=== PATIENT | male | born 1980 | race American Indian/Alaskan Native ===

== ENCOUNTER 2016-08-12 15:26 | Emergency (ER) | payer SELFPAY ==
[2016-08-12 15:41] VITALS: BP 158/108
--- NOTE | 2016-08-12 15:55 | Emergency Department Report ---
Chief Complaint: Chest Pain Stated Complaint: DIFF BREATHING/CHEST PAIN Time Seen by Provider: 08/12/16 15:52 - HPI History of Present Illness: 35 y/o male complain of chest pain and shortness of breath x 2 days .pt state that he current of albuterol neb medication . - ROS Review of Systems: per HPI - Exam Vital Signs: Vital Signs 08/12/16 15:36 Temperature 99.4 F Pulse Rate 98 H Respiratory 24 Rate Blood Pressure 158/108 O2 Sat by Pulse 97 Oximetry Physical Exam: GENERAL: The patient is well-developed and well-nourished.pt is obese Patient is in NAD. HENT: Normocephalic. Atraumatic. Patient has moist mucous membranes. Throat: No erythema, swelling or exudates. EYES: Extraocular motions are intact, PERRL NECK: Supple. No meningitic signs are noted. There is no adenopathy noted. CHEST/LUNGS: Clear to auscultation bilaterally. wheezing noted . There is no respiratory distress noted. HEART/CARDIOVASCULAR: Regular rate and rhythm. Normal S1 S2. No murmurs, rubs , clicks, or gallops. ABDOMEN: Abdomen is soft, nontender.. Bowel sounds normoactive. There is no abdominal distention. Negative rebound tenderness. Negative Rovsing. Negative [place] testing. Negative obturator and psoas signs. Negative CVA tenderness B/ L. : Deferred. SKIN: There is no rash. There is no edema. There is no diaphoresis. NEURO: The patient is A&Ox3. The patient has no focal neurologic deficits. MUSCULOSKELETAL: There is no tenderness or deformity. There is no limitation range of motion. PSYCH: Pt has appropriate mood and affect. MSE screening note: Focused history and physical exam performed. Due to findings the following was ordered: ED Disposition for MSE Condition: Stable
[2016-08-12 16:13] LABS: Basophils % (Auto) 0.5 % (0.0-1.8); Hematocrit 43.2 % (35.5-45.6); Mean Corpuscular HGB Conc 32 % (32-34); Mean Corpuscular Hemoglobin 27 pg (28-32); Mean Corpuscular Volume 83 fl (84-94); Platelet Count 307 K/mm3 (140-440); Red Blood Count 5.21 M/mm3 (3.65-5.03); Red Cell Distribution Width 15.9 % (13.2-15.2); White Blood Count 8.6 K/mm3 (4.5-11.0)
[2016-08-12 16:38] LABS: Creatine Kinase MB 4.2 ng/mL (0.0-4.0)
[2016-08-12 16:39] LABS: Blood Urea Nitrogen 9 mg/dL (9-20); Calcium 8.1 mg/dL (8.4-10.2); Carbon Dioxide 27 mmol/L (22-30); Chloride 101.1 mmol/L (98-107); Creatine Kinase 264 units/L (55-170); Glucose 93 mg/dL (75-100); Potassium 4.8 mmol/L (3.6-5.0); Sodium 142 mmol/L (137-145)
[2016-08-12] MEDS ORDERED: DUONEB 0.5 MG-3 MG/3 ML SOLN IH ONE (16:39)
[2016-08-12 16:40] LABS: Anion Gap 19 mmol/L
[2016-08-12] MEDS ORDERED: DUONEB 0.5 MG-3 MG/3 ML SOLN IH SCH (20:00)
--- NOTE | 2016-08-13 09:27 | XRay Report ---
CHEST TWO VIEWS: 08/12/16 15:26:00 CLINICAL: Chest pain. COMPARISON: None FINDINGS: Normal heart and pulmonary vasculature. The lungs are normally expanded and clear.The bones and soft tissues are unremarkable. IMPRESSION: Normal chest.
--- NOTE | 2016-08-14 05:14 | ED Elopement Review ---
ED Pt Elopement review - Results review Lab results: Laboratory Tests 08/12/16 08/12/16 16:03 16:03 WBC 8.6 RBC 5.21 H Hgb 14.0 Hct 43.2 MCV 83 L MCH 27 L MCHC 32 RDW 15.9 H Plt Count 307 Lymph % (Auto) 21.7 [place] % (Auto) 8.5 H Eos % (Auto) 7.0 H Baso % (Auto) 0.5 Lymph # 1.9 [place] # 0.7 Eos # 0.6 H Baso # 0.0 Seg Neutrophils % 62.3 Seg Neutrophils # 5.3 Sodium 142 Potassium 4.8 Chloride 101.1 Carbon Dioxide 27 Anion Gap 19 BUN 9 Creatinine 0.6 L Estimated GFR > 60 BUN/Creatinine Ratio 15.00 Glucose 93 Calcium 8.1 L Total Creatine Kinase 264 H CK-MB (CK-2) 4.2 H CK-MB (CK-2) Rel Index 1.5 Troponin T < 0.010 - Call Back decision Pt Call Back Decision: No action required
== END 2016-08-13 05:00 | disposition left against medical advice (07) ==
LOC: ED 15:26
DX: R07.9 Chest pain, unspecified (principal); R06.02 Shortness of breath; Z53.21 Procedure and treatment not carried out due to patient leaving prior to being seen by health care provider
CPT/HCPCS: 36415; 71020; 80048; 82550; 82553; 84484; 85025; 93005; 93010; 94640

== ENCOUNTER 2019-10-13 11:40 | Emergency (ER) | payer OTHER ==
--- NOTE | 2019-10-13 11:58 | Event Note ---
ED Screening Note ED Screening Note: states he feels like he is "having an allergic reaction" states he feels like he has throat itching, lip swelling and tongue swelling does not appear to have obvious angioedema states the right side of his face is tingling states he has a right sided headache states this started yesterday states he took benadryl PMHx asthma, HTN, allergies he is not sure what he takes for his blood pressure states it has been a few days since he took his medicine This initial assessment/diagnostic orders/clinical plan/treatment(s) is/are subject to change based on patients health status, clinical progression and re- assessment by fellow clinical providers in the ED. Further treatment and workup at subsequent clinical providers discretion. Patient/guardian urged not to elope from the ED as their condition may be serious if not clinically assessed and managed. Initial orders include: labs, UA, CT head
[2019-10-13 12:52] LABS: Basophils # (Auto) 0.1 K/mm3 (0.0-0.1); Basophils % (Auto) 0.9 % (0.0-1.8); Eosinophils # (Auto) 0.4 K/mm3 (0.0-0.4); Eosinophils % (Auto) 4.8 % (0.0-4.3); Hemoglobin 12.9 gm/dl (11.8-15.2); Lymphocytes # (Auto) 1.9 K/mm3 (1.2-5.4); Mean Corpuscular HGB Conc 32 % (32-34); Mean Corpuscular Volume 82 fl (84-94); Monocytes # (Auto) 0.7 K/mm3 (0.0-0.8); Monocytes % (Auto) 7.8 % (0.0-7.3); Platelet Count 345 K/mm3 (140-440); Red Cell Distribution Width 16.5 % (13.2-15.2)
[2019-10-13 12:57] LABS: Alanine Aminotransferase 16 units/L (7-56); Albumin 3.6 g/dL (3.9-5); BUN/Creatinine Ratio 10; Blood Urea Nitrogen 7 mg/dL (9-20); Calcium 8.4 mg/dL (8.4-10.2); Hemolysis Index 6
--- NOTE | 2019-10-13 13:21 | Cat Scan Report ---
CT HEAD WITHOUT CONTRAST INDICATION / CLINICAL INFORMATION: headache, tingling, elevated BP. TECHNIQUE: All CT scans at this location are performed using CT dose reduction for ALARA by means of automated e xposure control. COMPARISON: None available. FINDINGS: HEMORRHAGE: No evidence of intracranial hemorrhage or extra-axial fluid collection. EXTRA-AXIAL SPACES: Cortical sulci, sylvian fissures and basilar cisterns have an unremarkable appear ance. VENTRICULAR SYSTEM: The ventricular system is of normal size and configuration. CEREBRAL PARENCHYMA: No areas of abnormal brain parenchymal attenuation are identified. There is no i ndication of recent infarction. MIDLINE SHIFT OR HERNIATION: There is no mass effect. CEREBELLUM / BRAINSTEM: Brainstem and cerebellum have an unremarkable appearance. INTRACRANIAL VESSELS:No abnormalities are identified on this noncontrast head CT. ORBITS: visualized portions of the orbits have an unremarkable appearance. SOFT TISSUES of HEAD: No significant abnormality. CALVARIUM: Evaluation of bone windows reveals no abnormalities. PARANASAL SINUSES / MASTOID AIR CELLS: Paranasal sinuses are free from inflammatory mucosal disease. Mastoid air cells are normally pneumatized. ADDITIONAL FINDINGS: None. IMPRESSION: 1. Normal head CT. Signer Name: Clint Elias MD Signed: 10/13/2019 1:16 PM Workstation Name: [id number]
[2019-10-13] MEDS ORDERED: FAMOTIDINE 20 MG/2 ML INJ IV ONE (13:31)
[2019-10-13] MEDS ORDERED: methylPREDNISolone Sod Succinate 125 MG/2 ML INJ IV ONE (13:31)
[2019-10-13] MEDS ORDERED: diphenhydrAMINE 50 MG/ML VIAL IV ONE (13:31)
[2019-10-13] MEDS ORDERED: ALBUTEROL 2.5 MG/3 ML NEBU IH ONE (13:34)
--- NOTE | 2019-10-13 13:38 | Emergency Department Report ---
ED Allergic Reaction HPI - General Chief complaint: Headache Stated complaint: ALLERGIC REACTION Time Seen by Provider: 10/13/19 11:57 Source: patient Mode of arrival: Ambulatory Limitations: No Limitations - History of Present Illness Initial Comments: Patient is 39 years old male hypertension and asthma. Patient presented to the ER complaining of difficulty swallowing and difficulty breathing associated with itching in his throat and tingling sensation to the right face since yesterday. Patient stated that he is taking hydrochlorothiazide for his blood pressure. Patient stated that symptoms started after he drink soda yesterday. There is no obvious angioedema noticed. MD Complaint: allergic reaction -: Last night Exposure: unknown Symptoms: difficulty swallowing, difficulty breathing Severity: moderate Treatment Prior to Arrival: benadryl - Related Data Allergies Allergy/AdvReac Type Severity Reaction Status Date / Time No Known Allergies Allergy Unverified 08/12/16 15:41 ED Review of Systems ROS: Stated complaint: ALLERGIC REACTION Other details as noted in HPI Comment: All other systems reviewed and negative Constitutional: denies: chills, fever ENT: throat pain Cardiovascular: denies: chest pain, palpitations Gastrointestinal: denies: abdominal pain, nausea, vomiting Musculoskeletal: denies: back pain ED Past Medical Hx - Past Medical History Previous Medical History?: Yes Hx Hypertension: Yes Hx Asthma: Yes - Surgical History Past Surgical History?: No - Social History Smoking Status: Never Smoker Substance Use Type: Marijuana ED Physical Exam - General Limitations: No Limitations General appearance: alert, in no apparent distress, anxious - Head Head exam: Present: atraumatic, normocephalic, normal inspection - Eye Eye exam: Present: normal appearance - ENT ENT exam: Present: normal exam, normal orophraynx, mucous membranes moist - Neck Neck exam: Present: normal inspection, full ROM. Absent: tenderness, meningismus, lymphadenopathy, thyromegaly - Respiratory Respiratory exam: Present: normal lung sounds bilaterally - Cardiovascular Cardiovascular Exam: Present: regular rate, normal rhythm, normal heart sounds - GI/Abdominal GI/Abdominal exam: Present: soft, normal bowel sounds. Absent: distended, tenderness, guarding, rebound, rigid, organomegaly, mass, bruit, pulsatile mass, hernia - Extremities Exam Extremities exam: Present: normal inspection, full ROM, normal capillary refill. Absent: tenderness, pedal edema, calf tenderness - Back Exam Back exam: Present: normal inspection, full ROM. Absent: CVA tenderness (R), CVA tenderness (L) - Neurological Exam Neurological exam: Present: alert, oriented X3, CN II-XII intact, normal gait, reflexes normal - Psychiatric Psychiatric exam: Present: normal mood, anxious - Skin Skin exam: Present: warm, intact, normal color ED Course Vital Signs 10/13/19 10/13/19 10/13/19 12:03 14:00 14:52 Temperature 98.3 F Pulse Rate 99 H 85 Pulse Rate [ 99 H Anterior Bilateral Throughout] Respiratory 20 19 Rate Respiratory 18 Rate [Anterior Bilateral Throughout] Blood Pressure 168/110 Blood Pressure 166/104 [Left] O2 Sat by Pulse 95 94 Oximetry ED Medical Decision Making - Lab Data Result diagrams: 10/13/19 12:09 10/13/19 12:09 - Radiology Data Radiology results: report reviewed - Medical Decision Making Patient is 39 years old male hypertension and asthma. Patient presented to the ER complaining of difficulty swallowing and difficulty breathing associated with itching in his throat and tingling sensation to the right face since yesterday. Patient stated that he is taking hydrochlorothiazide for his blood pressure. Patient stated that symptoms started after he drink soda yesterday. There is no obvious angioedema noticed. Patient received Solu-Medrol, Benadryl, Pepcid and clindamycin. Patient stated that he is feeling much better. Patient is denying any difficulty swallowing or difficulty breathing. CT neck with IV contrast showed no airway compromise. It showed a mild swelling in the right submandibular gland. No evidence of Christiano angina. patient strongly advised to follow-up with his primary care physician in the next 2 to 3 days for possible referral to ENT. Patient also advised to return to the ER if he develop any new symptoms or if his symptoms get worse. Critical care attestation.: If time is entered above; I have spent that time in minutes in the direct care of this critically ill patient, excluding procedure time. ED Disposition Clinical Impression: Neck pain, Malignant hypertension, Allergic reaction, Submandibular gland swelling Disposition: - TO HOME OR SELFCARE Is pt being admited?: No Condition: Stable Instructions: Hypertension (ED) Referrals: GONZALO LA MD [Primary Care Provider] - 3-5 Days
--- NOTE | 2019-10-13 15:29 | Cat Scan Report ---
CT NECK WITH CONTRAST HISTORY: Difficulty swallowing, difficulty breathing COMPARISON: None. TECHNIQUE: Routine CT of the neck is performed following intravenous contrast. [facility] CT dose reduction for ALARA by means of automated exposure control. CONTRAST: 100 ml of Omnipaque 300 FINDINGS: Mild prominence of the adenoid and palatine tonsils are noted. No inflammatory changes or a bscess. The epiglottis and laryngeal vestibule are unremarkable. The upper trachea is widely patent. The right submandibular gland appears slightly edematous with subtle surrounding fat stranding. No ev idence for salivary stones or focal lesion. The remaining salivary glands and thyroid gland are unrem arkable. There are scattered shotty lymph nodes in both jugular chains but no pathologic adenopathy. The vascular structures are patent. The bony structures are intact. The lung apices are clear. IMPRESSION: Slightly abnormal appearance of the right submandibular gland. Inflammation Please correlate with the patient. Mild tonsillar prominence. No abscess or mass. Signer Name: Julio Ribeiro Jr, MD Signed: 10/13/2019 3:25 PM Workstation Name: [id number]
[2019-10-13] MEDS ORDERED: cloNIDine 0.1 MG TAB PO ONE (17:01)
[2019-10-13 18:20] VITALS: BP 153/106
== END 2019-10-13 18:20 | disposition home or self-care (01) ==
LOC: ED 11:40
DX: T78.40XA Allergy, unspecified, initial encounter (principal); M54.2 Cervicalgia; I10 Essential (primary) hypertension; K11.8 Other diseases of salivary glands; J45.909 Unspecified asthma, uncomplicated; F12.10 Cannabis abuse, uncomplicated; X58.XXXA Exposure to other specified factors, initial encounter
CPT/HCPCS: 36415; 70450; 70491; 80053; 85025; 87116; 87430; 94640; 96365; 96375; 99285; J1200; J2930; Q9967; 94644

== ENCOUNTER 2019-12-15 18:24 | Emergency (ER) | payer OTHER ==
[2019-12-15] MEDS ORDERED: IBUPROFEN 600 MG TAB PO ONE (19:19)
[2019-12-15] MEDS ORDERED: ACETAMINOPHEN 500 MG TAB PO ONE (19:19)
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
[2019-12-15 21:23] VITALS: BP 174/124
== END 2019-12-15 21:25 | disposition home or self-care (01) ==
LOC: ED 18:24
DX: S39.012A Strain of muscle, fascia and tendon of lower back, initial encounter (principal); M62.830 Muscle spasm of back; M62.838 Other muscle spasm; I10 Essential (primary) hypertension; J45.909 Unspecified asthma, uncomplicated; Z79.899 Other long term (current) drug therapy; V89.2XXA Person injured in unspecified motor-vehicle accident, traffic, initial encounter; Y93.89 Activity, other specified; Y92.410 Unspecified street and highway as the place of occurrence of the external cause; Y99.8 Other external cause status
CPT/HCPCS: 70450; 72125; 72131